=== PATIENT | female | born 1960 | race Caucasian/White ===

== ENCOUNTER → 2017-01-01 | Outpatient (CLI) | payer OTHER ==
[~2017-01-01] MED LIST: ALBUTEROL SULF0.5 M1 INH; ASPIR-LOW81 MG PO; ASPIRIN CHEWABL81 M1 NG; ASPIRIN325 M2 PO; ATIVAN1 MG PO; ATOXIMETIN-B1 CAP PO; CIPRO250 MG PO; CIPRO500 MG PO; CITALOPRAM40 MG PO; CLARITIN-D 12 H1 TAB PO; CLARITIN10 MG PO; Clopidogrel75 MG PO; DELTASONE10 MG PO; DIOVAN80 M1 PO; DIOVAN80 MG PO; FLONASE 0.05% 121 EA NAS; GOOD NEIGHBOR150 MG PO; GUAIFENESIN PO; LEVOFLOXACIN500 MG PO; LOPRESSOR50 MG PO; LORAZEPAM1 MG PO; LYRICA75 M1 PO; LYRICA75 MG PO; MEDROL DOSEPAK4 MG PO; MULTI VITAMINS1 TAB PO; NO MED LIST; OYSTER SHELL CA1 TA5 PO; PRAVASTATIN SOD20 MG NG; PREDNICOT10 MG PO; PREDNISONE10 MG PO; PROAIR HFA8.5 GM IH; PYRIDIUM200 MG PO; RANITIDINE HCL150 M1 PO; SINGULAIR10 M1 PO; SINGULAIR10 MG PO; SPIRIVA -- 3018 MCG INH; SPIRIVA18 MCG PO; STOOL SOFT-STI1 EACH PO; SYMBICORT1 AE1 INH; Septra Ds 800 M1 TAB PO; TYLENOL325 M1 PO; VALSARTAN80 MG PO; VENTOLIN0.09 MG/AC IH; VIBRAMYCIN100 MG PO; VITAMIN D31000 IU PO; VITAMIN D32000 UNIT PO; VITAMIN E400 UNI2 PO; ZITHROMAX Z PA250 MG PO; ZITHROMAX250 MG PO; ZOFRAN ODT4 MG SL; ZYRTEC10 MG PO; [UNRECOGNIZED DRUG - OTHER] PO; [UNRECOGNIZED DRUG - OTHER] PO
== END | disposition home or self-care (01) ==
LOC: MAMMO 12-11 13:30
DX: Z12.31 Encounter for screening mammogram for malignant neoplasm of breast (principal)

== ENCOUNTER 2017-11-22 15:53 | Emergency (ER) | payer OTHER ==
[~2017-11-22] VITALS: Ht 162.5 cm; Wt 140.6 kg
[2017-11-22 16:05] VITALS: BP 164/66
[2017-11-22 16:50] LABS: BASO % 0.5 % (0.0-1.0); EOS # 0.2 10*3/uL (0.0-0.4); EOS % 2.4 % (1.0-4.0); HEMATOCRIT 41.2 % (37.0-47.0); HEMOGLOBIN 13.4 g/dl (12.0-16.0); LYMPH # 1.9 10*3/uL (1.3-4.4); LYMPH % 21.5 % (27.0-41.0); MEAN CELL VOLUME 94.5 fl (81.0-99.0); MEAN CORPUSCULAR HGB 30.7 pg (27.0-31.0); MEAN CORPUSCULAR HGB CONC 32.5 g/dl (33.0-37.0); MEAN PLATELET VOLUME 9.5 fl (9.6-12.3); MONO # 0.8 10*3/uL (0.1-1.0); MONO % 9.1 % (3.0-9.0); NEUT # 5.8 10*3/uL (2.3-7.9); NEUT % 66.2 % (47.0-73.0); PLATELET COUNT AUTOMATED 247 10*3/uL (130-400); RED BLOOD COUNT 4.36 10*6/uL (4.10-5.10); RED CELL DISTRI WIDTH 12.9 % (0-14.5); WHITE BLOOD COUNT 8.7 10*3/uL (4.8-10.8)
[2017-11-22 16:58] LABS: ACT PARTIAL THROMBO TIME 22.8 SECONDS (20.8-31.5)
[2017-11-22 17:13] LABS: ALBUMIN 3.3 gm/dl (3.1-4.5); ALKALINE PHOSPHATASE 69 U/L (45-117); BUN 15 mg/dl (7-24); CHLORIDE 104 mmol/L (98-107); CREATININE 0.79 mg/dL (0.55-1.02); LIPASE 111 U/L (73-393); SGOT/AST 31 IU/L (3-35); SGPT/ALT 45 U/L (12-78); SODIUM 141 mmol/L (136-145); TOTAL PROTEIN 6.9 gm/dL (6.4-8.2)
[2017-11-22 17:14] LABS: TROPONIN I < 0.015 ng/ml (<0.045)
== END 2017-11-22 18:05 | disposition home or self-care (01) ==
LOC: ED 15:53
PROVIDERS: Nurse Practitioner Family
DX: Z00.00 Encounter for general adult medical examination without abnormal findings (principal); R06.02 Shortness of breath; Z98.51 Tubal ligation status; Z87.442 Personal history of urinary calculi; Z98.890 Other specified postprocedural states; Z87.01 Personal history of pneumonia (recurrent); Z79.82 Long term (current) use of aspirin; Z79.899 Other long term (current) drug therapy; Z88.1 Allergy status to other antibiotic agents; Z88.0 Allergy status to penicillin; Z88.8 Allergy status to other drugs, medicaments and biological substances

== ENCOUNTER → 2018-11-02 | Outpatient (CLI) | payer OTHER | END | disposition home or self-care (01) | LOC: MAMMO 16:10 | DX: Z12.31 Encounter for screening mammogram for malignant neoplasm of breast (principal) ==